=== PATIENT | female | born 1990 | race Asian ===

== ENCOUNTER 2018-01-26 14:49 | Emergency (ER) | payer MEDICAID ==
[~2018-01-26] VITALS: Ht 154.9 cm; Wt 67.9 kg
[2018-01-26] MEDS ORDERED: PROCHC RC (18:35)
[2018-01-26 18:43] VITALS: BP 120/50
== END 2018-01-26 18:44 | disposition home or self-care (01) ==
LOC: ER 14:49
DX: K64.9 Unspecified hemorrhoids (principal); Z79.899 Other long term (current) drug therapy
CPT/HCPCS: 99283